=== PATIENT | male | born 1950 | race Two or more races ===

== ENCOUNTER 2023-08-28 15:24 | Emergency (ER) | payer BC, MEDICARE ==
[~2023-08-28] VITALS: Ht 177.8 cm; Wt 70.0 kg
[2023-08-28 15:29] VITALS: TEMP 98.2; O2SAT 96
[2023-08-28] MEDS: LEVETIRACETAM 500MG PREMIX 100 ML IV ONE (16:11)
[2023-08-28] MEDS: SODIUM CHLORIDE 0.9% 1000ML BAG (SEPSIS BOLUS) IV ONE (16:11)
[2023-08-28 16:28] LABS: BASOPHILS % 0.6 % (0.0-2.0); HEMATOCRIT. 36.5 % (42.0-52.0); HEMOGLOBIN. 12.5 g/dL (14.0-18.0); LYMPHOCYTES % 15.4 % (20.0-50.0); MEAN CORPUSCULAR HEMOGLOBIN 33.1 pg (28.0-32.0); MEAN CORPUSCULAR HGB CONC 34.3 g/dL (31.0-37.0); MEAN CORPUSCULAR VOLUME 96.7 fL (80.0-94.0); MEAN PLATELET VOLUME 7.6 fl (7.4-10.4); MONOCYTES % 9.3 % (2.0-8.0); NEUTROPHILS % 73.7 % (40.0-76.0); PLATELET 332 x1000/uL (130-400); RED BLOOD CELL COUNT 3.78 mill/uL (4.7-6.1); RED CELL DISTRIBUTION WIDTH 13.5 % (11.6-14.6); WHITE BLOOD COUNT 9.2 x1000/uL (4.5-11.0)
[2023-08-28 16:49] LABS: ALANINE AMINOTRANSFERASE 18 IU/L (10-49); ALBUMIN 4.5 g/dL (3.2-4.8); ASPARTATE AMINOTRANSFERASE 19 IU/L (<34); BILIRUBIN TOTAL 0.4 mg/dL (0.1-1.0); CARBON DIOXIDE 25 mEq/L (21-32); CHLORIDE 110 mEq/L (98-107); CREATININE 1.3 mg/dL (0.6-1.3); GLUCOSE 109 mg/dL (70-105); POTASSIUM 4.5 mEq/L (3.5-5.1); PROTEIN TOTAL 7.3 g/dL (6.0-8.3); SODIUM 142 mEq/L (136-145); UREA NITROGEN BLOOD 21 mg/dL (9-23)
[2023-08-28 16:56] LABS: TROPONIN I HIGH SENSITIVITY < 4 ng/L (3.0-53)
[2023-08-28 19:42] VITALS: BP 150/87; PULSE 89; RESP 16
[2023-08-28] MEDS: LORAZEPAM 2MG/ML INJ IV NR (19:47)
[2023-08-28] MEDS ORDERED: LORAZEPAM 2MG/ML INJ IV PRN (20:00)
[2023-08-28] MEDS ORDERED: ACETAMINOPHEN 325MG TABLET PO PRN (20:00)
[2023-08-28] MEDS ORDERED: HYDROCODONE/ACETAMINOPHEN 5/325MG TABLET PO PRN (20:00)
[2023-08-28] MEDS ORDERED: MAGNESIUM/ALUMINUM HYDROXIDE/SIMETHICONE 30ML UDC PO PRN (20:00)
[2023-08-28] MEDS ORDERED: CLONIDINE 0.1MG TABLET PO PRN (20:00)
[2023-08-28] MEDS ORDERED: ONDANSETRON HCL 4MG/2ML INJ IV PRN (20:00)
[2023-08-28] MEDS ORDERED: ENOXAPARIN 40MG/0.4ML SYR SUBCUT SCH (21:00)
== END 2023-08-28 20:42 | disposition left against medical advice (07) ==
LOC: ER 15:24 → EDBEDREQ 18:19 → ER 20:42 → CANBEDREQ 08-29 19:43
DX: R55 Syncope and collapse (principal); R56.9 Unspecified convulsions; F03.90 Unspecified dementia, unspecified severity, without behavioral disturbance, psychotic disturbance, mood disturbance, and anxiety
CPT/HCPCS: 99285; 96365; 70450; 71045; 96366; 96375; 80053; 83880; 85025; 84484; 36415; 93005; J1953; J2060; J7030